=== PATIENT | female | born 1950 | race Caucasian/White ===

== ENCOUNTER 2018-11-17 13:52 | Emergency (ER) | payer MEDICARE, BC ==
--- OUTSIDE RECORDS SUMMARY | 2018-11-17 14:18 | XMS REPORT | Continuity of Care Document ---
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 6.2-8.1 Globulin 3.0 g/dL 2.0-4.8 Alb/Glob(!) 1.3 RATIO 0.6-2.2 Laboratory test finding 03/05/2013 [facility] CA 19-9 30 U/mL <55 29 Basic Metabolic Panel 11/08/2012 [facility] Sodium 138 mmol/L 133-145 Potassium 4.3 mmol/L 3.5-5.0 Chloride 102 mmol/L 101-111 Co2 Carbon Dioxide 28.0 mmol/L 22-32 Anion Gap 8.0 mmol/L 2-11 Glucose 92 mg/dL 70-100 Blood Urea Nitrogen 10 mg/dL 6-24 Creatinine 0.70 mg/dL 0.50-1.40 BUN/Creatinine Ratio 14.3 8-20 Calcium 9.4 mg/dL 8.1-9.9 Egfr Non- 85.4 >60 Egfr 109.8 >60 30 Lipid Profile (Trig/Chol/HDL) 11/08/2012 [facility] Triglycerides 69 mg/dL 40- 200 Cholesterol 200 mg/dL Less than 200 HDL Cholesterol 46 mg/dL 40-60 31 Cholesterol/HDL Ratio 4.4 Average 1-4.44 LDL Cholesterol 140.2 mg/dL High Less Than 100 32 Laboratory test finding 11/08/2012 [facility] Alt 14 U/L 14-54 Ast 18 U/L 12-42 Vitamin D, 25 Hydroxy 11/08/2012 [facility] 25-Hydroxy Vitamin D2 <4.0 ng/mL 25-Hydroxy Vitamin D3 15 ng/mL 25-Hydroxy Vitamin D Total 15 ng/mL Abnormal 33 CBC W/Auto 10/16/2012 [facility] 10.4 3/UL 4.8- 10.8 Differential(!) [address] [facility] [place] [address] Count Ser [phone] Auto CNT RBC Red Blood Count 4.28 X106/UL 4.20-6.20 Hemoglobin Blood 12.5 g/dL 12.0-18.0 Hematocrit 39.0 % 35-52 MCV (Corpuscular Volume) 91.1 FL 79-97 MCH (Corpuscular Hemoglobin) 29.3 pg 27-31 MCHC (Corpuscular Hemog Conc) 32.2 g/dL 32.0-36.0 RDW 14.1 % 10.5-15.0 Platelet Count Blood Auto CNT 393 X103/UL 150-450 MPV 5.9 FL Low 7.4-10.4 Lymph% 12.6 % Low 20.0-45.0 Beaver% 3.3 % 1.0-9.0 Neutrophil % 84.1 % High 38.0-83.0 Absolute Lymphocytes 1.3 X103/UL 1.0-4.8 Absolute Monocytes 0.3 X103/UL 0.0-0.8 Absolute Neutrophils 8.7 X103/UL High 1.5-7.7 Amylase Isoenzymes 10/16/2012 [facility] Pancreatic Amylase 35 U/L 12-52 34 Salivary Amylase 85 U/L 9-86 35 Total Amylase 120 U/L Abnormal 30-110 36 Laboratory test 10/16/2012 [facility] C Reactive Protein 1.3 mg/dL High Less than 0.5 finding Amylase 127 U/L High 20-120 Laboratory test 10/15/2012 [facility] C-Reactive Protein <pending> finding CBC W/Auto 10/15/2012 [facility] Blood Count <pending> Differential(!) Ser Auto CNT RBC Red Blood Count <pending> Hemoglobin Blood <pending> Hematocrit <pending> MCV (Corpuscular Volume) <pending> MCH (Corpuscular Hemoglobin) <pending> MCHC (Corpuscular Hemog Conc) <pending> RDW <pending> Platelet Count Blood Auto CNT <pending> MPV <pending> Lymph% <pending> Beaver% <pending> Neutrophil % <pending> Absolute Lymphocytes <pending> Absolute Monocytes <pending> Absolute Neutrophils <pending> Xray 10/15/2012 [facility] Radiology CT Abd/Pel W <pending> CMP(!) 10/15/2012 [facility] Sodium(!) <pending> Potassium(!) <pending> Chloride Serum/Plasma(!) <pending> Carbon Dioxide Ser/Plasm(!) <pending> BUN - Urea Nitrogen(!) <pending> Calcium Ser/Plasma Mass/Vol(!) <pending> Creatinine Serum Mass/Vol(!) <pending> Glucose Blood(!) <pending> Uric Acid Ser/Plas Mass/Vol(!) <pending> BUN/Creatinine Ratio(!) <pending> Albumin Serum/Plasma(!) <pending> Alkaline Phosphatase(!) <pending> Bilirubin Total Mass/Vol(!) <pending> Ast - Sgot <pending> Alt - SGPT <pending> Protein, Total(!) <pending> Ua Microscopic(!) 10/15/2012 [facility] Ua WBC <pending> Ua RBC <pending> Ua Epithelial Cells <pending> Ua Crystals <pending> Ua Bacteria <pending> Ua Mucous <pending> Ua Amorphous <pending> Ua Yeast <pending> Ua Casts <pending> Laboratory test finding 10/15/2012 [facility] Amylase 383 U/L High 20-120 37 C Reactive Protein 0.6 mg/dL High Less than 0.5 38 Liver Function Panel 10/15/2012 [facility] Direct Bilirubin 0.1 mg/dL 0.1-0.5 Indirect Bilirubin 0.6 mg/dL 0.3-1.0 Comp Metabolic Panel 10/15/2012 [facility] Sodium 138 mmol/L 133-145 Potassium 3.5 mmol/L 3.5-5.0 Chloride 102 mmol/L 101-111 Co2 Carbon Dioxide 28.0 mmol/L 22-32 Anion Gap 8.0 mmol/L 2-11 Glucose 98 mg/dL 70-100 Blood Urea Nitrogen 13 mg/dL 6-24 Creatinine 0.60 mg/dL 0.50-1.40 BUN/Creatinine Ratio 21.7 High 8-20 Calcium 9.2 mg/dL 8.1-9.9 Total Protein 7.2 g/dL 6.2-8.1 Albumin 3.7 g/dL 3.2-5.2 Globulin 3.5 g/dL 2-4 Albumin/Globulin Ratio 1.1 1-3 Total Bilirubin 0.7 mg/dL 0.4-1.5 Alkaline Phosphatase 56 U/L 30-110 Alt 15 U/L 14-54 Ast 21 U/L 12-42 Egfr Non- 102.0 >60 Egfr 131.1 >60 39 Laboratory test 06/14/2012 [facility] CA 19-9 29 U/mL <55 40 finding Laboratory test 06/14/2012 [facility] Hepatitis B Surface Nonreactive Nonreactive finding Antigen Hepatitis B Core IgM Nonreactive Nonreactive Hepatitis B Surface 06/14/2012 [facility] Hepatitis B Surface Nonreactive Nonreactive AB Titer AB Hep B Surf AB Index 0.40 41 Laboratory test 06/14/2012 [facility] Hepatitis C Nonreactive Nonreactive finding Antibody [facility] 11/10/2011 [facility]#Other <pending> Observations [facility] 08/05/2011 [facility]Other <pending> Observations 1 SEE RESULT BELOW Name: SULMA RAMIREZ Stone : [address]: Maximiliano Noble MD Acct: [id number] Unit: [id number] AGE: 67 Location: ENDO Re09/25/17 SEX: F Status: REG REF SPEC: [id number] SONIDO: 09/25/[address]: Maximiliano [facility] MD REQ: [id number] RECD: 09/25/17 STATUS: CELESTE BREWER DR: Joseluis Singh MD _ SOURCE: GAS ANTRUM SPDESC: ORDERED: Clotest Procedure Result Reported Site Clotest Final 09/26/17- 35 ML Clotest Negative * ML - Main Lab . END OF REPORT DEPARTMENT OF PATHOLOGY, [address] [place] [address] Luis Alfredo Call M.D. Director [facility] # [id number] 2 SEE RESULT BELOW Name: SULMA RAMIREZ : [address]: Maximiliano Noble MD Acct: [id number] Unit: [id number] AGE: 67 Location: ENDO Re09/25/17 SEX: F Status: REG REF SPEC: [id number] SONIDO: 09/25/175173 [facility] DR: Maximiliano Noble MD REQ: [id number] RECD: 09/25/174710 STATUS: SAUL BREWER DR: Joseluis Singh MD _ ORDERED: LEVEL 4 FINAL DIAGNOSIS Duodenum, third portion, biopsy: -- Benign small intestinal mucosa with no significant pathologic abnormalities. -- No evidence of villous blunting or increased intraepithelial lymphocytes. CLINICAL HISTORY Mild iron deficiency anemia; stopped iron POST-OPERATIVE DIAGNOSIS Esophagus ? normal; esophagogastric 38 ? small hiatal hernia; stomach ? normal, small hiatal hernia, CLOtest; duodenum ? normal, high second ? small AVM biopsied 20 cm. Conclusions/Plan: Hiatal hernia, gastroesophageal reflux disease, duodenal AVM; iron deficiency anemia; proton pump inhibitor GROSS DESCRIPTION The specimen is received in formalin labeled, Third Portion Duodenum Biopsy, and consists of a 0.7 x 0.4 x 0.1 cm aggregate of talamantes-pink irregular soft tissue fragments which is submitted entirely in one cassette. Signed (signature on file) Zora Howard MD 1122 END OF REPORT DEPARTMENT OF PATHOLOGY, [address] [place] [address] Luis Alfredo Call M.D. Director [facility] # [id number] 3 Because ethnic data is not always readily available, this report includes an eGFR for both -Americans and non- Americans. The National Kidney Disease Education Program (NKDEP) does not endorse the use of the MDRD equation for patients that are not between the ages of 18 and 70, are , have extremes of body size, muscle mass, or nutritional status, or are non- or non-. According to the National Kidney Foundation, irrespective of diagnosis, the stage of the disease is based on the level of kidney function: Stage Description GFR(mL/min/1.73 m(2)) 1 Kidney damage with normal or decreased GFR 90 2 Kidney damage with mild decrease in GFR 60-89 3 Moderate decrease in GFR 30-59 4 Severe decrease in GFR 15-29 5 Kidney failure <15 (or dialysis) 4 Desirable: <150 Borderline High: 150-199 High: 200-499 Very High: >500 5 Desirable: <200 Borderline High: 200-239 High: >239 6 Low: <40 Desirable: 40-60 High: >60 7 Desirable: <100 Near Optimal: 100-129 Borderline High: 130-159 High: 160-189 Very High: >189 8 >100 to <200 pg/mL: likely compensated congestive heart failure (CHF) 200 to 400 pg/mL: likely moderate CHF >400 pg/mL: likely moderate to severe CHF 9 Acute inflammation: >10.00 10 Test Performed by: [facility] [address] [place] [address] 11 Because ethnic data is not always readily available, this report includes an eGFR for both -Americans and non- Americans. The National Kidney Disease Education Program (NKDEP) does not endorse the use of the MDRD equation for patients that are not between the ages of 18 and 70, are , have extremes of body size, muscle mass, or nutritional status, or are non- or non-. According to the National Kidney Foundation, irrespective of diagnosis, the stage of the disease is based on the level of kidney function: Stage Description GFR(mL/min/1.73 m(2)) 1 Kidney damage with normal or decreased GFR 90 2 Kidney damage with mild decrease in GFR 60-89 3 Moderate decrease in GFR 30-59 4 Severe decrease in GFR 15-29 5 Kidney failure <15 (or dialysis) 12 Acute inflammation: >10.00 13 ADDITIONAL INFORMATION The testing method is an immunoenzymatic assay manufactured by [employer] and performed on the Twitter DxI 800. Values obtained with different assay methods or kits may be different and cannot be used interchangeably. Test results cannot be interpreted as absolute evidence for the presence or absence of malignant disease. Test Performed by: [facility] [address] [place] [address] 14 Because ethnic data is not always readily available, this report includes an eGFR for both -Americans and non- Americans. The National Kidney Disease Education Program (NKDEP) does not endorse the use of the MDRD equation for patients that are not between the ages of 18 and 70, are , have extremes of body size, muscle mass, or nutritional status, or are non- or non-. According to the National Kidney Foundation, irrespective of diagnosis, the stage of the disease is based on the level of kidney function: Stage Description GFR(mL/min/1.73 m(2)) 1 Kidney damage with normal or decreased GFR 90 2 Kidney damage with mild decrease in GFR 60-89 3 Moderate decrease in GFR 30-59 4 Severe decrease in GFR 15-29 5 Kidney failure <15 (or dialysis) 15 Estradiols <40 pg/mL are sent to a reference lab for low range testing. Postmenopausal Females < 20 Ovulating females: by day in cycle relative to LH Peak Follicular phase - 12 10-50 - 4 60-200 Mid-cycle - 1 120-375 Luteal phase + 2 50-155 + 6 60-260 + 12 15-115 16 REFERENCE VALUE Premenopausal: 15-350 (E2 levels vary widely through the menstrual cycle.) Postmenopausal: <10 ADDITIONAL INFORMATION This test was developed and its performance characteristics determined by [facility] in a manner consistent with CLIA requirements. This test has not been cleared or approved by the U.S. Food and Drug Administration. Test Performed by: [facility] - [address] [id number] 17 Because ethnic data is not always readily available, this report includes an eGFR for both -Americans and non- Americans. The National Kidney Disease Education Program (NKDEP) does not endorse the use of the MDRD equation for patients that are not between the ages of 18 and 70, are , have extremes of body size, muscle mass, or nutritional status, or are non- or non-. According to the National Kidney Foundation, irrespective of diagnosis, the stage of the disease is based on the level of kidney function: Stage Description GFR(mL/min/1.73 m(2)) 1 Kidney damage with normal or decreased GFR 90 2 Kidney damage with mild decrease in GFR 60-89 3 Moderate decrease in GFR 30-59 4 Severe decrease in GFR 15-29 5 Kidney failure <15 (or dialysis) 18 Because ethnic data is not always readily available, this report includes an eGFR for both -Americans and non- Americans. The National Kidney Disease Education Program (NKDEP) does not endorse the use of the MDRD equation for patients that are not between the ages of 18 and 70, are , have extremes of body size, muscle mass, or nutritional status, or are non- or non-. According to the National Kidney Foundation, irrespective of diagnosis, the stage of the disease is based on the level of kidney function: Stage Description GFR(mL/min/1.73 m(2)) 1 Kidney damage with normal or decreased GFR 90 2 Kidney damage with mild decrease in GFR 60-89 3 Moderate decrease in GFR 30-59 4 Severe decrease in GFR 15-29 5 Kidney failure <15 (or dialysis) 19 ADDITIONAL INFORMATION The testing method is an immunoenzymatic assay manufactured by [employer] and performed on the [employer] DxI 800. Values obtained with different assay methods or kits may be different and cannot be used interchangeably. Test results cannot be interpreted as absolute evidence for the presence or absence of malignant disease. Test Performed by: [place] [address] Director Financial Services: Juarez Reilly II, M.D., Ph.D. 20 Because ethnic data is not always readily available, this report includes an eGFR for both -Americans and non- Americans. The National Kidney Disease Education Program (NKDEP) does not endorse the use of the MDRD equation for patients that are not between the ages of 18 and 70, are , have extremes of body size, muscle mass, or nutritional status, or are non- or non-. According to the National Kidney Foundation, irrespective of diagnosis, the stage of the disease is based on the level of kidney function: Stage Description GFR(mL/min/1.73 m(2)) 1 Kidney damage with normal or decreased GFR 90 2 Kidney damage with mild decrease in GFR 60-89 3 Moderate decrease in GFR 30-59 4 Severe decrease in GFR 15-29 5 Kidney failure <15 (or dialysis) 21 ADDITIONAL INFORMATION The testing method is an immunoenzymatic assay manufactured by [employer] and performed on the [employer] DxI 800. Values obtained with different assay methods or kits may be different and cannot be used interchangeably. Test results cannot be interpreted as absolute evidence for the presence or absence of malignant disease. Test Performed by: [facility] [place] [address] Director Financial Services: Juarez Reilly II, M.D., Ph.D. 22 ADDITIONAL INFORMATION The testing method is an immunoenzymatic assay manufactured by [employer] and performed on the [employer] DxI 800. Values obtained with different assay methods or kits may be different and cannot be used interchangeably. Test results cannot be interpreted as absolute evidence for the presence or absence of malignant disease. Test Performed by: [place] [address] Director Financial Services: Juarez Reilly II, M.D., Ph.D. 23 The testing method is an immunoenzymatic assay manufactured by [employer] and performed on the Twitter DxI 800. Values obtained with different assay methods or kits may be different and cannot be used interchangeably. Test results cannot be interpreted as absolute evidence for the presence or absence of malignant disease. Test Performed by: [place] [address] Director Financial Services: Juan Vargas III, M.D. 24 REFERENCE INTERVAL: Pancreatic Amylase Isoenzyme Access complete set of age- and/or gender-specific reference intervals for this test in the [employer] [facility] Test Directory ([employer]). 25 REFERENCE INTERVAL: Salivary Amylase Isoenzyme Access complete set of age- and/or gender-specific reference intervals for this test in the [employer] [facility] Test Directory ([employer]). 26 REFERENCE INTERVAL: Total Amylase for Isoenzymes Access complete set of age- and/or gender-specific reference intervals for this test in the [employer] Test Directory ([employer]). Test Performed by: [facility] [address] [place] [id number] 27 The testing method is an immunoenzymatic assay manufactured by [employer] and performed on the [email or web address] DxI 800. Values obtained with different assay methods or kits may be different and cannot be used interchangeably. Test results cannot be interpreted as absolute evidence for the presence or absence of malignant disease. Test Performed by: [place] [address] Director Financial Services: Juan Vargas III, M.D. 28 Because ethnic data is not always readily available, this report includes an eGFR for both -Americans and non- Americans. The National Kidney Disease Education Program (NKDEP) does not endorse the use of the MDRD equation for patients that are not between the ages of 18 and 70, are , have extremes of body size, muscle mass, or nutritional status, or are non- or non-. According to the National Kidney Foundation, irrespective of diagnosis, the stage of the disease is based on the level of kidney function: Stage Description GFR(mL/min/1.73 m(2)) 1 Kidney damage with normal or decreased GFR 90 2 Kidney damage with mild decrease in GFR 60-89 3 Moderate decrease in GFR 30-59 4 Severe decrease in GFR 15-29 5 Kidney failure <15 (or dialysis) 29 The testing method is an immunoenzymatic assay manufactured by [employer] and performed on the Twitter DxI 800. Values obtained with different assay methods or kits may be different and cannot be used interchangeably. Test results cannot be interpreted as absolute evidence for the presence or absence of malignant disease. Test Performed by: [place] [address] Director Financial Services: Juan Vargas III, M.D. 30 Because ethnic data is not always readily available, this report includes an eGFR for both -Americans and non- Americans. The National Kidney Disease Education Program (NKDEP) does not endorse the use of the MDRD equation for patients that are not between the ages of 18 and 70, are , have extremes of body size, muscle mass, or nutritional status, or are non- or non-. According to the National Kidney Foundation, irrespective of diagnosis, the stage of the disease is based on the level of kidney function: Stage Description GFR(mL/min/1.73 m(2)) 1 Kidney damage with normal or decreased GFR 90 2 Kidney damage with mild decrease in GFR 60-89 3 Moderate decrease in GFR 30-59 4 Severe decrease in GFR 15-29 5 Kidney failure <15 (or dialysis) 31 HDL Interpretation: Undesirable: High Risk: Less than 40 mg/dL Desirable: Low Risk: Greater than 60 mg/dL 32 LDL Interpretation: Low Risk Optimal Level: LDL Less than 100 mg/dL Near or Above Optimal: LDL 100-129 mg/dL Borderline High Risk: LDL 130-159 mg/dL High Risk: LDL 160-189 mg/dL Very High Risk: LDL Greater than 189 mg/dL 33 Interpretation: 10-24 (mild to moderate deficiency) -- REFERENCE VALUE -- 25-HYDROXY D TOTAL (D2+D3) Optimum levels in the normal population are 25-80 Test Performed by: [facility] [address] [place] [address] Director Financial Services: Juan Vargas III, M.D. 34 REFERENCE INTERVAL: Pancreatic Amylase Isoenzyme Access complete set of age- and/or gender-specific reference intervals for this test in the [employer] [facility] Test Directory ([employer]). 35 REFERENCE INTERVAL: Salivary Amylase Isoenzyme Access complete set of age- and/or gender-specific reference intervals for this test in the [employer] [facility] Test Directory ([employer]). 36 REFERENCE INTERVAL: Total Amylase for Isoenzymes Access complete set of age- and/or gender-specific reference intervals for this test in the [employer] Test Directory ([employer]). Test Performed by: [facility] [address] [place] [id number] AOT-LIVER,TEREZA 38 AOT-LIVER,TEREZA 39 Because ethnic data is not always readily available, this report includes an eGFR for both -Americans and non- Americans. The National Kidney Disease Education Program (NKDEP) does not endorse the use of the MDRD equation for patients that are not between the ages of 18 and 70, are , have extremes of body size, muscle mass, or nutritional status, or are non- or non-. According to the National Kidney Foundation, irrespective of diagnosis, the stage of the disease is based on the level of kidney function: Stage Description GFR(mL/min/1.73 m(2)) 1 Kidney damage with normal or decreased GFR 90 2 Kidney damage with mild decrease in GFR 60-89 3 Moderate decrease in GFR 30-59 4 Severe decrease in GFR 15-29 5 Kidney failure <15 (or dialysis) 40 The testing method is an immunoenzymatic assay manufactured by [employer] and performed on the [employer] DxI 800. Values obtained with different assay methods or kits may be different and cannot be used interchangeably. Test results cannot be interpreted as absolute evidence for the presence or absence of malignant disease. Test Performed by: [facility] [address] [place] [address] Director Financial Services: Juan Vargas III, M.D. 41 The World Health Organization (WHO) Hepatitis B Immunoglobulin 1st International Reference Preparation (1976): The accepted criteria for immunity to HBV is anti-HBs activity greater than or equal to 10 mIU/mL. An Index Value of 1.00 is equivalent to 10 mIU/mL. Samples with an Index Value of 1.00 or greater are considered reactive (protective) in accordance with the CDC guidelines. Procedures Date Code Description Status 09/25/2017 29628 Moderate Sedation Services; Same Phys Each Additional 15 Completed Mins 09/25/2017 78245 Endoscopy Upper GI W/ Ablation Of Tumors/Polyps/Lesions Completed 09/25/2017 25128 EGD+Biopsy Single Or Multiple Completed 06/22/2017 77510 Moderate Sedation Services; Same Phys Each Additional 15 Completed Mins 06/22/2017 66163 Moderate Sedation Services; Same Phys Intl 15 Mins; PT >=5 Completed Years 06/22/2017 78154 Colonoscopy Completed 05/31/2012 92771 Colonoscopy Completed 07/12/2006 24370 Colonscopy+Biopsy Completed Encounters Type Date Location Provider Dx Diagnosis Office Visit 11/12/2017 [facility] Maximiliano Gutierres D50.9 Iron deficiency 3:15p [facility] anemia, unspecified 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 K86.2 Cyst of pancreas K76.89 Other specified diseases of liver Office Visit 10/18/2017 [facility] Maximiliano Gutierres D50.9 Iron deficiency 11:30a [facility] MD anemia, unspecified 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 K44.9 Diaphragmatic hernia without obstruction or gangrene Office Visit 08/16/2017 [facility] Maximiliano Gutierres E61.1 Iron deficiency 11:30a [facility] MD I99.8 Other disorder of circulatory system 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 Cyst of pancreas K57.30 Dvrtclos of lg int w/o perforation or abscess w/o bleeding Office Visit 07/10/2017 [facility] Maximiliano Gutierres D50.9 Iron deficiency 2:15p [facility] MD anemia, unspecified K59.00 Constipation, unspecified D72.810 Lymphocytopenia Office Visit 11/15/2016 Gastroenterology Maximiliano Gutierres K86.2 Cyst of 3:15p [facility] Mary Kate Noble MD pancreas R63.5 Abnormal weight gain K76.89 Other specified diseases of liver F41.1 Generalized anxiety disorder K58.1 Irritable bowel syndrome with constipation Office Visit 10/28/2015 Gastroenterology Maximiliano Gutierres K86.2 Cyst of 10:00a [facility] Noble MD pancreas K59.00 Constipation, unspecified R63.4 Abnormal weight loss Office Visit 05/17/2015 Gastroenterology Maximiliano Gutierres K86.2 Cyst of 3:45p [facility] MD pancreas Office Visit 09/03/2013 Gastroenterology Maximiliano Gutierres 577.2 Cyst & 2:00p [facility] MD Pseudocyst Pancreas 573.8 Liver Disorders Other Spec 562.10 Diverticulosis Colon W/O Hemorrhage 783.21 Loss Of Weight Office Visit 05/29/2013 Gastroenterology Maximiliano Perla3.8 Liver Disorders 11:30a [facility] MD Other Spec 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 780.52 Insomnia Unspecified 564.00 Constipation Unspecified Office Visit 05/01/2013 Gastroenterology Maximiliano Gutierres 789.06 Pain Abdominal 12:30p [facility] MD Epigastric 305.02 Alcohol Abuse Episodic 562.10 Diverticulosis Colon W/O Hemorrhage 564.1 Irritable Bowel Syndrome 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 300.02 Anxiety Disorder Generalized Office 04/11/2013 Gastroenterology Nancy 562.11 Diverticulitis Visit 11:15a [facility] Ferraro Colon W/O ALUMNI COORDINATOR-C Hemorrhage Office 03/05/2013 Gastroenterology Maximiliano Gutierres 577.2 Cyst & Pseudocyst Visit 3:45p [facility] MD Pancreas 573.8 Liver Disorders Other Spec 564.00 Constipation Unspecified V12.72 History Personal Colonic Polyps 789.04 Pain Abdominal Left Lower Quadrant Office Visit 11/11/2012 Gastroenterology Maximiliano Gutierres 564.00 Constipation 1:30p [facility] MD Unspecified 573.8 Liver Disorders Other Spec 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 V12.72 History Personal Colonic Polyps Office Visit 10/16/2012 Gastroenterology Maximiliano Gutierres 789.00 Pain Abdominal 1:00p [facility] MD Unspec Site Office Visit 06/14/2012 Gastroenterology Maximiliano Gutierres 573.8 Liver 9:45a [facility] MD Disorders Other Spec 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
--- OUTSIDE RECORDS SUMMARY | 2018-11-17 14:18 | XMS REPORT | Continuity of Care Document ---
:1950 External Reference #:[id number] Author Name John Rankin MD Address [address] [place] [address] Care Team Providers Name Role Phone Joseluis Singh M.D. 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 Primary Care Physician Unavailable Payers Date Identification Numbers Payment Provider Subscriber Effective: Policy Number: [id number] [place] [employer]VS Consuelo Lombardo 2018 PayID: [id number] [address] [place] [address] Policy Number: [id number] [facility] Consuelo Lombardo PayID: [id number] [address] [place] [address] Advance Directives Description No Information Available Problems Active Problems Provider Date Sialolithiasis John Rankin MD Onset: 06/29/2011 Acute pharyngitis Jeffrey Alegre M.D. 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 Cigarette Use Negative For Current Cigarette Smoker Tobacco Use Start: Unknown End: Unknown current.no Tobacco Use Start: Unknown End: Unknown current.no Smokeless Tobacco current.no ETOH Use Current Alcohol Use Occasionally Tobacco Use Start: Unknown Patient has never smoked Smoking Status Reviewed: 10/22/18 Patient has never smoked Allergies, Adverse Reactions, Alerts Active Allergies Reaction Severity Comments Date None 09/04/2007 Medications Active Medications SIG Qnty Indications Ordering Provider Date Estrogen Unknown Vitamin D Unknown Lorazepam Unknown Propananol -Long Unknown Acting Premarin Lisa LIVE, Juarez 0.3mg Tablets Valacyclovir HCL Take Two Tablets Unknown 1gm Spaced 12 Hours Tablets Apart X 1 Day Advil as needed Unknown 200mg Capsules Aspirin Adult Unknown 325mg Tablets History Medications Clindamycin HCL 1 by mouth 3 21caps John Rankin, 10/16/2014 - 300mg times a day for 7 OK 11/29/2014 Capsules days Amoxicillin 1 by mouth 3 21tabs John Rankin, 10/16/2014 - 500mg times a day for 7 OK 11/29/2014 Tablets days Augmentin 1 by mouth twice 20tabs John Rankin, 10/15/2014 - 875-125mg a day 10/16/2014 Tablets Augmentin 1 by mouth twice 20tabs John Rankin, 06/28/2011 - 875-125mg a day 03/06/2013 Tablets Calcium Unknown - 10/16/2014 Vitamin K Unknown - 10/16/2014 Halcion take once daily Jeffrey Reyes - 0.25mg Tablets at bedtime M.D. 10/21/2018 Immunizations CPT Code Status Date Vaccine Lot # [id number] Refused 11/30/2014 Prevnar 13 For Intramuscular Use 12157 Refused 11/30/2014 Influenza Virus Vaccine, 3 Years Of Age And Above, Intramuscular Vital Signs Date Vital Result Comment 10/22/2018 8:47am Weight 135.00 lb Weight 61.236 kg Height 64.5 inches 5'4.50" Height in cm's 163.8 cm BMI (Body Mass Index) 22.8 kg/m2 12/22/2015 3:07pm BP Systolic 123 mmHg BP Diastolic 81 mmHg Heart Rate 84 /min Respiratory Rate 16 /min Weight 150.00 lb Weight 68.040 kg Height 64.5 inches 5'4.50" Height in cm's 163.8 cm BMI (Body Mass Index) 25.3 kg/m2 11/30/2014 3:02pm BP Systolic 136 mmHg BP Diastolic 77 mmHg Heart Rate 79 /min Respiratory Rate 17 /min Body Temperature 99.4 F Weight 150.00 lb Weight 68.040 kg Height 64.5 inches 5'4.50" Height in cm's 163.8 cm BMI (Body Mass Index) 25.3 kg/m2 10/16/2014 10:20am BP Systolic 120 mmHg BP Diastolic 73 mmHg Heart Rate 68 /min Respiratory Rate 16 /min Weight 150.00 lb Weight 68.040 kg Height 64.5 inches 5'4.50" Height in cm's 163.8 cm BMI (Body Mass Index) 25.3 kg/m2 03/06/2013 11:46am BP Systolic 120 mmHg BP Diastolic 78 mmHg Heart Rate 64 /min Respiratory Rate 16 /min Weight 150.00 lb Weight 68.040 kg Height 64.5 inches 5'4.50" Height in cm's 163.8 cm BMI (Body Mass Index) 25.3 kg/m2 06/28/2011 3:05pm BP Systolic 119 mmHg BP Diastolic 86 mmHg Heart Rate 87 /min Respiratory Rate 16 /min Weight 150.00 lb Weight 68.040 kg Height 64.5 inches 5'4.50" Height in cm's 163.8 cm BMI (Body Mass Index) 25.3 kg/m2 09/09/2008 10:20am Heart Rate 72 /min Respiratory Rate 16 /min Weight 152.00 lb Weight 68.947 kg 08/20/2008 2:01pm Heart Rate 64 /min Respiratory Rate 16 /min Weight 150.00 lb Weight 68.040 kg 09/25/2007 2:29pm BP Systolic 132 mmHg BP Diastolic 75 mmHg Heart Rate 93 /min Respiratory Rate 16 /min 09/05/2007 2:11pm BP Systolic 121 mmHg BP Diastolic 83 mmHg Heart Rate 100 /min Respiratory Rate 15 /min Results Test Date Facility Test Result H/L Range Note Laboratory test [facility] Rheumatoid < 20.0 Less Than finding 9 c/o Department of Laboratories Factor IU/mL [address] [place] [address] [phone] Erythrocyte Sed Rate 10 MM/HR 0-30 Anya (Antinuclear 09/19/2008 [facility] Antinuclear AB NEGATIVE Negative Antibodies) c/o Department [place] [address] [phone] Reviewed By (SEE NOTE) 1 Ssa/SSB 09/19/2008 [facility] Ssa NEGATIVE Negative c/o Department [place] [address] [phone] SSB NEGATIVE Negative Comp Metabolic Panel 09/19/2008 [facility] Sodium 137 mmol/L 135-145 c/o [place] [address] [phone] Potassium 4.1 mmol/L 3.5-5.0 Chloride 105 mmol/L 101-111 Co2 (Carbon Dioxide) 28.0 mmol/L 22-32 Anion Gap 4.0 mmol/L 2-11 2 Glucose 87 mg/dL 70-100 3 BUN 16 mg/dL 6-24 Creatinine 0.80 mg/dL 0.50-1.40 One Over Creatinine 1.20 BUN/Creatinine Ratio 20.0 8-20 Calcium 9.3 mg/dL 8.1-9.9 4 Total Protein 6.4 GM/DL 6.2-8.1 Albumin 3.7 GM/DL 3.6-5.4 Globulin 2.7 GM/DL 2-4 Albumin/Globulin Ratio 1.4 1-3 Bilirubin Total 1.3 mg/dL 0.4-1.5 Alkaline Phosphatase 45 U/L 30-110 Alt (SGPT) 17 U/L 14-54 Ast (Sgot) 18 U/L 12-42 Lipid Profile 09/19/2008 [facility] Triglyceride 63 mg /dL 40-200 (Trig/Chol/HDL) c/o Department [place] [address] [phone] Cholesterol 192 mg/dL Less Than 200 5 High Density Lipoprotein 46 mg/dL 40-60 6 Cholesterol/HDL Ratio 4.17 AVERAGE 1-4.44 Low Density Lipoprotein 133 mg/dL High Less Than 100 7 Laboratory test 09/19/2008 [facility] CPK (Creatine 34 U/L 0-170 finding c/o Department of Laboratories [place]) [place] [address] [phone] BNP Evaluatr 105.0 pg/mL High 0-100 CBC With Manual 09/19/2008 [facility] White Blood 5.1 CUMM 4.8-10.8 Diff c/o Department [place] [address] [phone] Red Cell Count 4.40 CUMM 4.2-5.4 Hemoglobin 13.5 g/dL 12.0-16.0 Hematocrit 39 % 35-47 Mean Corpuscular Volume 89 um3 79-97 Mean Corpuscular Hemoglob 31 pg 27-31 Mean Corpuscular HGB Cone 34 g/dL 32-36 Redcell Distribution WDTH 14 % 10.5-15 Platelet Count 282 CUMM 150-450 Mean Platelet Volume 7.0 um3 Low 7.4-10.4 Polysegmented Neutrophil 63 % 38-83 Lymphocyte 30 % 25-47 Monocyte 3 % 0-13 Eosenophil 3 % 0-6 Basophil 1 % 0-2 Absolute Neutrophil Count 3.2 Anisocytosis SLIGHT 1 REVIEWED BY YANI HORTON MD 2 Anion gap measurement may be of limited value in the presence of any alkalosis, especially in a combined acid base disorder. . 3 Note change in reference range as of 01/30/08. The change was based on recommendations from the [place] [employer]. 4 Please note change in reference range effective 07 . 5 CHOLESTEROL INTERPRETATION: Desirable: Less than 200 MG/DL Borderline-High Risk: 200-239 MG/DL High-Risk: 240 MG/DL and over 6 HDL INTERPRETATION: Undesirable: High Risk: Less than 40 MG/DL Desirable: Low Risk: Greater than 60 MG/DL 7 LDL INTERPRETATION: Low Risk Optimal Level: LDL Less than 100 MG/DL Near or Above Optimal: LDL 100-129 MG/DL Borderline High Risk: LDL 130-159 MG/DL High Risk: LDL 160-189 MG/DL Very High Risk: LDL Greater than 189 MG/DL Procedures Date Code Description Status 12/22/2015 20846 Fiberoptic Laryngoscopy Completed 03/06/2013 23938 Fiberoptic Laryngoscopy Completed 04/07/2010 37033 Fiberoptic Laryngoscopy Completed 09/09/2008 46186 Fiberoptic Laryngoscopy Completed 09/05/2007 86856 Comprehensive Audiogram Completed 09/05/2007 95921 Comprehensive Audiogram Completed Encounters Type Date Location Provider Dx Diagnosis Office Visit 10/22/2018 [facility],After John Casanova0.0 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 06/11/07 MD Massiel lip Office Visit 11/30/2014 Reggie,After Jeffrey Meier Pharyngitis, Acute 3:15p 06/11/07 Wolfgang Alegre Office Visit 10/16/2014 [facility],After John Echols 527.2 Sialoadenitis/ Parotit 10:15a 06/11/07 MD Massiel is Office Visit 06/28/2011 [facility],After John Echols 527.5 Sialolithiasis 3:00p 06/11/07 MD Massiel Office Visit 04/07/2010 [facility],After John Echols 784.49 Hoarseness /Other 4:15p 06/11/07 MD Massiel 784.1 Pain Of Throat Office Visit 09/09/2008 10:15a Chapman,After 06/11/07 John Echols 527.5 Sialolithiasis MD Massiel 784.49 Hoarseness /Other Office Visit 08/20/2008 [facility],After John Echols 527.5 Sialolithiasis 2:00p 06/11/07 MD Massiel Office Visit 09/25/2007 [facility],After John Echols 386.11 Vertigo, Benign 2:15p 06/11/07 MD Massiel Paroxysmal Positional 289.1-1 Adenitis, Cervical/Chronic Office Visit 09/05/2007 [facility],After John Echols 386.10 Vertigo / 2:00p 06/11/07 MD Massiel Unspecified 386.11 Vertigo, Benign Paroxysmal Positional Plan of Treatment No Information Available
--- NOTE | 2018-11-17 16:20 | ED ---
GI/ HPI - HPI Summary HPI Summary: A 68 y/o F referred by Dr. Martin for obstructed bowel presents to ED c/o constipation for past two weeks. She felt herself becoming constipated and her abd distending, so she went to Dr. Stevenson's office around , and the WATER QUALITY TECHNICIAN did a pelvic exam and felt a lot of stool present on her L abd. She also saw NASIR Lynch, at the end of October, who did a rectal exam and recommended she keep up the milk of magnesia, Mirolax and diet changes. She has been doing these things but to no relief. Yesterday and today, she feels that she needs to go, but is unable to pass the stool. She is passing brown fluid but very little stool. PMHx: colostomy, bowel obstructions that resulted in hospital admission. Patient is afebrile in ED. - History of Current Complaint Chief Complaint: EDConstipation Stated Complaint: BOWEL OBSTRUCTION PER PT Hx Obtained From: Patient Onset/Duration: Started Weeks Ago, Atraumatic, Still Present Timing: Constant Severity: Mild Current Severity: Moderate Pain Intensity: 3 - out of 10 Pain Characteristics: Aching Associated Signs and Symptoms: Positive: Other: - pos: abd distension - Allergy/Home Medications Allergies/Adverse Reactions: Allergies Allergy/AdvReac Type Severity Reaction Status Date / Time carvedilol AdvReac Mild Fatigue Verified 11/17/18 14:07 risedronate sodium AdvReac Mild Joint Pain Verified 11/17/18 14:07 PMH/Surg Hx/FS Hx/Imm Hx Previously Healthy: No Endocrine/Hematology History: Denies: Hx Diabetes, Hx Systemic Lupus Erythematosus, Hx Thyroid Disease - THYROID NODULES, Hx Anemia Comment Only: Hx Anticoagulant Therapy - taking ASA x 3 daily x several days Cardiovascular History: Reports: Hx Cardiomegaly - 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 Denies: Hx Angina, Hx Coronary Artery Disease, Hx Hypercholesterolemia, Hx Hypertension, Hx Myocardial Infarction, Hx Pacemaker/ICD, Hx Valvular Heart Disease Comment Only: Hx Congestive Heart Failure - SLIGHTLY LOWER EF, Other Cardiovascular Problems/Disorders - ENLARGED HEART WITH INCREASED PUMPING VOLUME OUTPUT PER PT Respiratory History: Denies: Hx Asthma, Hx Chronic Obstructive Pulmonary Disease (COPD) GI History: Reports: Hx Diverticulosis, Other GI Disorders - colostomy with reversal Denies: Hx Jaundice History: Denies: Hx Dialysis, Hx Renal Disease Musculoskeletal History: Reports: Hx Osteoporosis Denies: Hx Rheumatoid Arthritis Sensory History: Reports: Hx Cataracts - BILATERAL, Hx Contacts or Glasses - GLASSES-DISTANCE Denies: Hx Hearing Aid Opthamlomology History: Reports: Hx Cataracts - BILATERAL, Hx Contacts or Glasses - GLASSES-DISTANCE Neurological History: Denies: Hx Dementia, Hx Headaches, Hx Seizures Psychiatric History: Comment Only: Hx Anxiety - SLIGHT AT TIMES - Cancer History Cancer Type, 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 bladder polyp removal- OFFICE-2011. hysterectomy [facility] [place]-1986. av malformation embolized-, [facility] RECENT[facility] 2011-[facility]. -left breast biopsy- benign. rt ankle surgery done november 20 2013. pins removed in 2013 and 2018. RIGHT ANKLE SURGERY- 11/2014 (4 total). hernia repair, appendectomy. CATARACT EXTRACTION BILATERAL- 3 YEARS AGO Hx Anesthesia Reactions: Yes - AVM EMBOLIZED-VOMITING, "OUT OF IT" Infectious Disease History: No Infectious Disease History: Denies: Hx Clostridium Difficile, Hx Hepatitis, Hx Human Immunodeficiency Virus (HIV), Hx of Known/Suspected MRSA, Hx Shingles, Hx Tuberculosis, History Other Infectious Disease, Traveled Outside the in Last 30 Days - Family History Family History: neg: breast CA - Social History Occupation: Retired Lives: With Family Alcohol Use: Occasionally Substance Use Type: Reports: None Smoking Status (MU): Never Smoked Tobacco Review of Systems Negative: Fever Gastrointestinal: Other - pos: abd distension Positive: Other - pos: constipation All Other Systems Reviewed And Are Negative: Yes Physical Exam - Summary Physical Exam Summary: Appearance: The patient is well-nourished in no acute distress and in no acute pain. Skin: The skin is warm and dry and skin color reflects adequate perfusion. HEENT: The head is normocephalic and atraumatic. The pupils are equal and reactive. The conjunctivae are clear and without drainage. Nares are patent and without drainage. Mouth reveals moist mucous membranes and the throat is without erythema and exudate. The external ears are intact. The ear canals are patent and without drainage. The tympanic membranes are intact. Neck: the neck is supple with full range of motion and non-tender. There are no carotid bruits. There is no neck vein distension. Respiratory: Chest is non-tender. Lungs are clear to auscultation and breath sounds are symmetrical and equal. Cardiovascular: Heart is regular rate and rhythm. There is no murmur or rub auscultated. There is no peripheral edema and pulses are symmetrical and equal. Abdomen: The abdomen is soft and non-tender. There are normal bowel sounds heard in all four quadrants and there is no organomegaly palpated. Musculoskeletal: There is no back tenderness noted. Extremities are non-tender with full range of motion. There is good capillary refill. There is no peripheral edema or calf tenderness elicited. Neurological: Patient is alert and oriented to person, place and time. The patient has symmetrical motor strength in all four extremities. Cranial nerves are grossly intact. Deep tendon reflexes are symmetrical and equal in all four extremities. Psychiatric: The patient has an appropriate affect and does not exhibit any anxiety or depression. RECTAL: Chaperoned by ERVIN Liu. No stool felt on exam, no stool on glove. Triage Information Reviewed: Yes Vital Signs On Initial Exam: Initial Vitals Temp Pulse Resp BP Pulse Ox 98.4 F 71 14 143/92 98 11/17/18 14:02 11/17/18 14:02 11/17/18 14:02 11/17/18 14:02 11/17/18 14:02 Vital Signs Reviewed: Yes Diagnostics - Vital Signs Vital Signs Temp Pulse Resp BP Pulse Ox 11/17/18 16:00 58 99 11/17/18 15:51 56 99 11/17/18 15:50 64 136/77 99 11/17/18 14:02 98.4 F 71 14 143/92 98 - Laboratory Lab Statement: Any lab studies that have been ordered have been reviewed, and results considered in the medical decision making process. - CT ABD/PEL CT CT Interpretation Completed By: Radiologist Summary of CT Findings: IMPRESSION: 1. There are air-fluid levels in the distal colon as far as the rectum but there is no pathologic dilatation of the small or large bowel. There is no free intraperitoneal gas to indicate bowel perforation. 2. The urinary bladder volume is estimated to be 1.2 L. Please correlate to signs or symptoms of urinary bladder outlet obstruction and/or neurogenic bladder. 3. There are extensive chronic, degenerative and iatrogenic findings described in the body of the report. ED provider has reviewed this report. Re-Evaluation - Re-Evaluation 1 Re-Evaluation Time: 17:24 Change: Unchanged Comment: ED provider at bedside for rectal exam. 2 Re-Evaluation Time: 17:58 Change: Unchanged Comment: Discussing CT results with patient. GIGU Course/Dx - Course Course Of Treatment: On rectal exam I could feel a mass but no stool. She swore that she emptied her bladder completely when she urinated however the CT scan shows a markedly enlarged bladder. I could not see the urine using the bladder scan. At for a catheter was placed and she did indeed have over a liter of urine in her bladder. I think this is likely the source of her discomfort as the scan is not being read as fecal impaction. Admittedly her previous surgeries to obscure some of the feeling in her pelvis. I recommended follow-up with Dr. Chavarria and Dr. stevenson this week. I wanted to discharge her with the Donnel[facility] in place but she refused. - Diagnoses Provider Diagnoses: Acute urinary retention Discharge - Sign-Out/Discharge Documenting (check all that apply): Patient Departure - D/C Patient Received Moderate/Deep Sedation with Procedure: No - Discharge Plan Condition: Stable Disposition: HOME Referrals: Joseluis Stevenson MD [Primary Care Provider] - 3 Days Additional Instructions: Please return to the ED if you experience new or worsening symptoms. Follow up with your primary care provider in 2-3 days. - Billing Disposition and Condition Condition: STABLE Disposition: Home - Attestation Statements Document Initiated by Loreeibe: Yes Documenting Scribe: Vincent Aguayo Provider For Whom Jason is Documenting (Include Credential): Dr. Balwinder Hutchins MD Scribe Attestation: I, Vincent Aguayo, scribed for Dr. Balwinder Hutchins MD on 11/17/18 at 1906. Scribe Documentation Reviewed: Yes Provider Attestation: The documentation as recorded by the Vincent garcía accurately reflects the service I personally performed and the decisions made by me, Dr. Balwinder Hutchins MD Status of Scribe Document: Viewed
[2018-11-17 19:14] LABS: Urine Appearance Clear; Urine Bilirubin Negative (Negative); Urine Blood Negative (Negative); Urine Color Straw; Urine Glucose Negative (Negative); Urine Ketones Negative (Negative); Urine Nitrite Negative (Negative); Urine Protein Negative (Negative); Urine Specific Gravity 1.003 (1.010-1.030); Urine Urobilinogen Negative (Negative)
[2018-11-17 19:56] VITALS: BP 131/77
== END 2018-11-17 19:56 | disposition home or self-care (01) ==
LOC: ED 13:52
DX: R33.9 Retention of urine, unspecified (principal)
CPT/HCPCS: 74176; 81003; 99283

== ENCOUNTER 2019-01-06 17:52 | Emergency (ER) | payer MEDICARE, BC ==
--- OUTSIDE RECORDS SUMMARY | 2019-01-06 17:58 | XMS REPORT | Continuity of Care Document ---
:1950 External Reference #:[id number] Author Name Teresa Mariano Care Team Providers Name Role Phone Joseluis Singh MD Primary Care Physician Unavailable Payers Date Identification Numbers Payment Provider Subscriber Policy Number: [id number] Medicare Sulma Ramirez PayID: [id number] [address] [place] [address] Policy Number: [id number] [facility] Sulma Ramirez PayID: [id number] [address] [place] [address] Onset: 2013 Policy Number: [facility] Sulma Ramirez [id number] Group Number: [id number] [address] [address] PayID: [place] [address] Problems Active Problems Provider Date Mitral valve disorder [facility] Schedule Onset: 05/23/2011 Tricuspid valve disorder, non-rheumatic [facility] Schedule Onset: 2010 Heart murmur John Avery M.D. Onset: 11/09/2011 Nonunion of fracture Ciaran Reynoso MD Onset: 06/19/2017 Metatarsalgia Ciaran Reynoso MD Onset: 06/19/2017 Unspecified osteoarthritis, unspecified Ciaran Reynoso MD Onset: 06/19/2017 site Iron deficiency anemia Maximiliano Noble MD Onset: 07/22/2017 Note: pt not actually anemic spring 2017 Chronic anxiety Maximiliano Noble MD Onset: 11/07/1997 Note: very concerned about all issues with mild abnormalities; Neurogenic bladder Maximiliano Nbole MD Onset: 11/18/2018 Note: no cause found; referred to urology by family or Erika; [place] once - doing straight caths for a few months; can wait many many hours between voids; recalls a voiding test Arteriovenous fistula of splanchnic Peter Nenita Noble MD Onset: 11/18/1994 circulation Note: treated at [facility] by [facility]; Resolved Problems 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 Allergies, Adverse Reactions, Alerts Active Allergies Reaction Severity Comments Date Carvedilol fatigue dyspnea Intolerance 02/21/2013 Actonel joint pain 09/05/2017 Inactive Allergies NKDA 2004 Medications Active Medications SIG Qnty Indications Ordering Date Provider Oxycodone HCL Unknown 5mg Tablets Miralax 17 grams by mouth Unknown Powder every day as needed Milk Of Magnesia 30 milliliters by Unknown mouth every day as 400mg/5ML Suspension needed Magnesium by mouth every Unknown Tablet night unsure of strength Vitamin K2 1 by mouth every Unknown 100mcg day Capsules Propranolol HCL 1/2 tablet by mouth Unknown as needed Tablet Ibuprofen by mouth as needed Unknown Tablets Premarin 1 by mouth 1-2 30tabs Unknown 0.3mg times a day Tablets Aspirin by mouth as needed Unknown 325mg Tablets Vitamin D3 1 by mouth every 30caps Unknown 400mg day Capsules Lorazepam 1 tablet po at Unknown 2mg Tablets bedtime History Medications Oxycodone HCL 1-2 tabs by mouth 30caps Yo Vera, 06/16/2014 - 5mg every 4-6 hours as Wolfgang 06/20/2015 Capsules needed pain Premarin 1 by mouth days 1-25 John Gilbert 05/26/2014 - 0.3mg Tablets Wolfgang Avery 05/25/2014 Vasotec 1 po bid 60tabs John Gilbert 02/21/2013 - 2.5mg Tablets Wolfgang Avery 05/12/2013 Coenzyme Q-10 po qd ocassionally Other Ordering 01/15/2013 - 200mg Provider 05/12/2013 Capsules Vitamin K2 1 po qd 1tabs Other Ordering 01/15/2013 - 500MCQ Tablets Provider 02/21/2013 Propranolol HCL ER take 1 by mouth 220caps John Gilbert 01/15/2013 - 60mg every ten hours Wolfgang Avery 06/20/2015 Caps ER 24HR Carvedilol 1 po bid 60tabs John Gilbert 01/01/2013 - 3.125mg Wolfgang Avery 01/15/2013 Tablets Propranolol HCL 1/2 po prn 60tabs John Gilbert 04/11/2012 - 20mg Wolfgang Avery 09/22/2014 Tablets Amoxicillin 500 mg 4tabs prior 4caps John Gilbert 10/15/2007 - 500mg to dental work Wolfgang Avery 12/01/2010 Capsules Vit D and calcium 1 PO qd John Gilbert 08/29/2007 - Wolfgang Avery 11/12/2008 Capsules Aspirin 1 PO prn John Gilbert 09/05/2006 - 325mg Tablets Wolfgang Avery 11/12/2008 Aspirin Enteric Coated 1 po qd prn John Gilbert 2004 - Wolfgang Avery 09/05/2006 325mg Tablets Calcium/Vit D 1 PO bid 30tabs John Gilbert 2004 - Tablets Wolfgang Avery 08/29/2007 Actonel One Q-WK In Am With 4tabs John Gilbert 2004 - 35mg Tablets Large Glass Of Wolfgang Avery 09/05/2006 [place] Empty Stomach, NPO For 30 Minutes Lorazepam 1 po hs prn 60tabs John Gilbert 2004 - 0.5mg Tablets Wolfgang Avery 12/01/2010 Propranolol 10mg bid prn 100tabs John Gilbert 2004 - 20mg Tablets pressure in head Wolfgang Avery 04/11/2012 Premarin 1 qd 30tabs John Gilbert 2004 - 0.3mg Tablets Wolfgang Avery 11/12/2008 Vitamin D 1 po qd Unknown - 1000Unit 11/09/2011 Tablets Premarin 1/2 po qd 90tabs Unknown - 0.3mg Tablets 05/25/2014 Halcion 1/2-1 tablet po qhs 60tabs Unknown - 0.25mg Tablets prn 11/07/2016 Multi Mineral 1 po qd Unknown - Tablets 11/09/2011 Percocet 1-2 by mouth every 4 Unknown - 5-325mg Tablets to 6 hours as needed 06/20/2015 pain Ibuprofen 2-3 tabs by mouth as Unknown - 200mg Tablets needed 05/25/2014 Benadryl Unknown - 06/20/2015 Spironolactone 1 daily Unknown - 25mg 09/04/2017 Tablets Oxycodone HCL Unknown - 04/29/2018 Medications Administered in Office Medication SIG Qnty Indications Ordering Provider Date Inj, Regadenoson, 0.1 MG Prince Carrion M.D., 07/30/2014 Injection STEFAN GARCIA Technetium TC 99M Prince Carrion M.D., 07/30/2014 Tetrofosmin, Per Unit Dose STEFAN GARCIA Up To 40 Millicuries Injection Vital Signs Date Vital Result Comment 12/23/2018 3:55pm Height 63.5 inches 5'3.50" Weight 137.00 lb Heart Rate 71 /min BP Systolic 126 mmHg BP Diastolic 86 mmHg O2 % BldC Oximetry 97 % BMI (Body Mass Index) 23.9 kg/m2 11/18/2018 4:10pm Height 63.5 inches 5'3.50" Weight 133.00 lb Heart Rate 82 /min BP Systolic 116 mmHg BP Diastolic 72 mmHg O2 % BldC Oximetry 97 % BMI (Body Mass Index) 23.2 kg/m2 11/07/2018 3:54pm Height 63.5 inches 5'3.50" Weight 136.00 lb Heart Rate 70 /min BP Systolic 119 mmHg BP Diastolic 81 mmHg O2 % BldC Oximetry 96 % BMI (Body Mass Index) 23.7 kg/m2 07/24/2018 10:02am Height 63.5 inches 5'3.50" Weight 136.12 lb Heart Rate 60 /min BP Systolic Sitting 118 mmHg Lue regular cuff BP Diastolic Sitting 82 mmHg Lue regular cuff Respiratory Rate 12 /min O2 % BldC Oximetry 98 % BMI (Body Mass Index) 23.7 kg/m2 06/20/2018 2:31pm Height 63.5 inches 5'3.50" Weight 132.00 lb Heart Rate 70 /min BP Systolic Sitting 116 mmHg BP Diastolic Sitting 76 mmHg Respiratory Rate 12 /min O2 % BldC Oximetry 97 % BMI (Body Mass Index) 23.0 kg/m2 Neck Circumference in inches 12 04/30/2018 3:24pm Height 63.5 inches 5'3.50" Weight 131.75 lb Heart Rate 80 /min BP Systolic Sitting 104 mmHg LA< reg BP Diastolic Sitting 64 mmHg LA< reg Body Temperature 98.6 F BMI (Body Mass Index) 23.0 kg/m2 Ejection Fraction 55%-60% 10/24/17 stress echo Ref 12/24/2017 3:45pm Height 63.5 inches 5'3.50" Weight 128.00 lb Heart Rate 68 /min BP Systolic 108 mmHg BP Diastolic 68 mmHg Respiratory Rate 14 /min Body Temperature 97.9 F Pain Level 4 BMI (Body Mass Index) 22.3 kg/m2 11/20/2017 3:18pm Height 63.5 inches 5'3.50" Weight 128.00 lb BP Systolic 110 mmHg BP Diastolic 68 mmHg Respiratory Rate 16 /min Pain Level 5 BMI (Body Mass Index) 22.3 kg/m2 10/12/2017 3:31pm Height 63.5 inches 5'3.50" Heart Rate 72 /min BP Systolic 98 mmHg BP Diastolic 60 mmHg Respiratory Rate 16 /min Body Temperature 98.9 F Pain Level 4 10/02/2017 11:17am Height 63.5 inches 5'3.50" Weight 128.00 lb Heart Rate 76 /min BP Systolic 115 mmHg BP Diastolic 70 mmHg Respiratory Rate 16 /min Body Temperature 98.2 F BMI (Body Mass Index) 22.3 kg/m2 09/05/2017 1:50pm Height 63.5 inches 5'3.50" Weight 127.25 lb Heart Rate 60 /min BP Systolic Sitting 110 mmHg BP Diastolic Sitting 70 mmHg BMI (Body Mass Index) 22.2 kg/m2 Ejection Fraction 55%-60% 11/21/16 echo 08/17/2017 2:34pm Height 63.5 inches 5'3.50" Weight 128.00 lb Heart Rate 77 /min Respiratory Rate 15 /min Pain Level 2 BMI (Body Mass Index) 22.3 kg/m2 06/19/2017 1:59pm Height 63.5 inches 5'3.50" Weight 140.00 lb BP Systolic 128 mmHg BP Diastolic 68 mmHg Respiratory Rate 15 /min Body Temperature 98.7 F Pain Level 5 BMI (Body Mass Index) 24.4 kg/m2 12/15/2016 11:15am Height 63.5 inches 5'3.50" Weight 137.00 lb Heart Rate 80 /min BP Systolic 116 mmHg BP Diastolic 78 mmHg Respiratory Rate 16 /min Body Temperature 97.6 F BMI (Body Mass Index) 23.9 kg/m2 11/09/2016 11:04am Height 64 inches 5'4" Weight 135.50 lb no shoes Heart Rate 62 /min BP Systolic Sitting 120 mmHg Rue reg cuff BP Diastolic Sitting 86 mmHg Rue reg cuff BP Systolic Standing 116 mmHg Rue reg cuff BP Diastolic Standing 88 mmHg Rue reg cuff Respiratory Rate 15 /min BMI (Body Mass Index) 23.3 kg/m2 Ejection Fraction 55-60% 07/07/2015-echo 06/16/2016 3:08pm Height 64 inches 5'4" Weight 132.00 lb Heart Rate 76 /min BP Systolic 124 mmHg BP Diastolic 80 mmHg BMI (Body Mass Index) 22.7 kg/m2 11/22/2015 1:31pm Height 64 inches 5'4" Weight 135.25 lb with shoes and orthopedic boot Heart Rate 64 /min BP Systolic 138 mmHg LA reg cuff BP Diastolic 88 mmHg LA reg cuff BMI (Body Mass Index) 23.2 kg/m2 Ejection Fraction 55%-60% 07/07/15 echo 06/21/2015 3:48pm Height 64 inches 5'4" Weight 130.00 lb without shoes Heart Rate 72 /min BP Systolic Sitting 130 mmHg La reg cuff BP Diastolic Sitting 84 mmHg La reg cuff BMI (Body Mass Index) 22.3 kg/m2 10/09/2014 11:47am Height 64 inches 5'4" Weight 126.00 lb Pain Level 0 BMI (Body Mass Index) 21.6 kg/m2 09/22/2014 3:24pm Height 64 inches 5'4" Weight 126.00 lb Heart Rate 78 /min BP Systolic 128 mmHg BP Diastolic 100 mmHg BMI (Body Mass Index) 21.6 kg/m2 08/20/2014 1:29pm Height 64 inches 5'4" Weight 126.00 lb Heart Rate 59 /min BMI (Body Mass Index) 21.6 kg/m2 07/16/2014 2:00pm Height 64 inches 5'4" Weight 126.00 lb BMI (Body Mass Index) 21.6 kg/m2 06/16/2014 2:10pm Height 64 inches 5'4" Weight 126.00 lb Pain Level 1 BMI (Body Mass Index) 21.6 kg/m2 05/26/2014 10:29am Height 64 inches 5'4" Weight 128.00 lb with shoes Heart Rate 58 /min BP Systolic Sitting 122 mmHg La reg cuff BP Diastolic Sitting 78 mmHg La reg cuff Respiratory Rate 16 /min BMI (Body Mass Index) 22.0 kg/m2 05/19/2014 2:21pm Height 64 inches 5'4" Weight 126.00 lb Pain Level 4 BMI (Body Mass Index) 21.6 kg/m2 04/28/2014 3:44pm BP Systolic 132 mmHg BP Diastolic 83 mmHg 04/28/2014 3:22pm Height 64 inches 5'4" Weight 128.00 lb Heart Rate 65 /min BP Systolic 149 mmHg BP Diastolic 79 mmHg BMI (Body Mass Index) 22.0 kg/m2 10/24/2013 3:52pm Height 64 inches 5'4" Weight 129.00 lb Heart Rate 64 /min BP Systolic Sitting 124 mmHg BP Diastolic Sitting 76 mmHg BMI (Body Mass Index) 22.1 kg/m2 05/12/2013 3:30pm Height 64 inches 5'4" Weight 138.00 lb Heart Rate 78 /min BP Systolic Sitting 120 mmHg BP Diastolic Sitting 84 mmHg BMI (Body Mass Index) 23.7 kg/m2 02/21/2013 1:01pm Height 64 inches 5'4" Weight 145.00 lb Heart Rate 56 /min BP Systolic 128 mmHg BP Diastolic 78 mmHg BMI (Body Mass Index) 24.9 kg/m2 01/15/2013 3:24pm Height 64 inches 5'4" Weight 143.00 lb Heart Rate 58 /min BP Systolic 130 mmHg BP Diastolic 80 mmHg Respiratory Rate 16 /min BMI (Body Mass Index) 24.5 kg/m2 08/30/2012 2:09pm Height 64 inches 5'4" Weight 143.00 lb Heart Rate 60 /min BP Systolic 112 mmHg BP Diastolic 70 mmHg BMI (Body Mass Index) 24.5 kg/m2 04/11/2012 3:33pm Height 64 inches 5'4" Weight 142.00 lb Heart Rate 67 /min BP Systolic 120 mmHg BP Diastolic 80 mmHg Respiratory Rate 16 /min BMI (Body Mass Index) 24.4 kg/m2 11/09/2011 2:49pm Height 64 inches 5'4" Weight 151.00 lb Heart Rate 72 /min BP Systolic 128 mmHg BP Diastolic 68 mmHg BMI (Body Mass Index) 25.9 kg/m2 05/11/2011 10:53am Height 64 inches 5'4" Weight 146.00 lb Heart Rate 86 /min BP Systolic 110 mmHg BP Diastolic 60 mmHg Respiratory Rate 16 /min BMI (Body Mass Index) 25.1 kg/m2 12/01/2010 2:01pm Height 64 inches 5'4" Weight 146.00 lb Heart Rate 80 /min BP Systolic 100 mmHg BP Diastolic 70 mmHg Respiratory Rate 16 /min BMI (Body Mass Index) 25.1 kg/m2 12/01/2009 1:29pm Height 64 inches 5'4" Weight 148.00 lb Heart Rate 74 /min BP Systolic Sitting 100 mmHg BP Diastolic Sitting 68 mmHg BMI (Body Mass Index) 25.4 kg/m2 11/12/2008 2:52pm Height 64 inches 5'4" Weight 149.00 lb weighs 145 at home without clothes Heart Rate 74 /min BP Systolic Sitting 124 mmHg BP Diastolic Sitting 82 mmHg BMI (Body Mass Index) 25.6 kg/m2 08/31/2008 1:30pm Height 64 inches 5'4" Weight 152.00 lb Heart Rate 73 /min BP Systolic Sitting 110 mmHg BP Diastolic Sitting 72 mmHg BP Systolic Standing 108 mmHg BP Diastolic Standing 80 mmHg BMI (Body Mass Index) 26.1 kg/m2 08/29/2007 3:16pm Height 64 inches 5'4" Weight 161.00 lb Heart Rate 74 /min BP Systolic Sitting 102 mmHg BP Diastolic Sitting 70 mmHg Respiratory Rate 16 /min BMI (Body Mass Index) 27.6 kg/m2 08/30/2006 2:18pm Height 64 inches 5'4" Weight 155.00 lb Heart Rate 73 /min BP Systolic Sitting 120 mmHg R BP Diastolic Sitting 60 mmHg R BP Systolic Standing 110 mmHg R BP Diastolic Standing 70 mmHg R BMI (Body Mass Index) 26.6 kg/m2 2004 1:37pm Height 64 inches 5'4" Weight 159.00 lb Heart Rate 91 /min BP Systolic Sitting 120 mmHg left arm, right arm 120 BP Diastolic Sitting 74 mmHg left arm, right arm 120 BP Systolic Standing 110 mmHg 76 BP Diastolic Standing 70 mmHg 76 BMI (Body Mass Index) 27.3 kg/m2 Results Test Date Facility Test Result H/L Range Note Laboratory test 06/26/2018 [facility] Blood Urea 18 mg/dL N 6- [address] [place] [address] [phone] Creatinine 06/26/2018 [facility] Creatinine 0.65 mg/dL N 0.51- 0.[address] [place] [address] [phone] Egfr Non- 91.5 >60 Egfr 110.7 >60 1 Xray 06/20/2018 [facility] Cta Chest r/o Pulmonary [address] [place] [address] [phone] Laboratory test 05/03/2018 [facility] Ferritin 29.8 ng/mL N 11 -[address] [place] [address] [phone] Comp Metabolic 05/03/2018 [facility] Sodium 139 mmol/L N 135- [address] [place] [address] [phone] Potassium 4.5 mmol/L N 3.5-5.0 Chloride 106 mmol/L N 101-111 Co2 Carbon Dioxide 30 mmol/L N 22-32 Anion Gap 3 mmol/L N 2-11 Glucose 84 mg/dL N 70-100 Blood Urea Nitrogen 20 mg/dL N 6-24 Creatinine 0.65 mg/dL N 0.51-0.95 BUN/Creatinine Ratio 30.8 High 8-20 Calcium 9.2 mg/dL N 8.6-10.3 Total Protein 6.3 g/dL Low 6.4-8.9 Albumin 3.9 g/dL N 3.2-5.2 Globulin 2.4 g/dL N 2-4 Albumin/Globulin Ratio 1.6 N 1-3 Total Bilirubin 0.40 mg/dL N 0.2-1.0 Alkaline Phosphatase 53 U/L N 34-104 Alt 9 U/L N 7-52 Ast 15 U/L N 13-39 Egfr Non- 91.5 >60 Egfr 110.7 >60 2 CBC Auto Diff 05/03/2018 [facility] White Blood 5.4 10^3/uL N 3.5-10.[address] [place] [address] [phone] Red Blood Count 4.57 10^6/uL N 4.00-5.40 Hemoglobin 13.9 g/dL N 12.0-16.0 Hematocrit 41 % N 35-47 Mean Corpuscular Volume 90 fL N 80-97 Mean Corpuscular Hemoglobin 31 pg N 27-31 Mean Corpuscular HGB Conc 34 g/dL N 31-36 Red Cell Distribution Width 14 % N 10.5-15 Platelet Count 319 10^3/uL N 150-450 Mean Platelet Volume 7.4 fL N 7.4-10.4 Abs Neutrophils 3.4 10^3/uL N 1.5-7.7 Abs Lymphocytes 1.4 10^3/uL N 1.0-4.8 Abs Monocytes 0.3 10^3/uL N 0-0.8 Abs Eosinophils 0.2 10^3/uL N 0-0.6 Abs Basophils 0.1 10^3/uL N 0-0.2 Abs Nucleated RBC 0 10^3/uL Granulocyte % 61.9 % N 38-83 Lymphocyte % 25.8 % N 25-47 Monocyte % 6.2 % N 0-7 Eosinophil % 4.5 % N 0-6 Basophil % 1.6 % N 0-2 Nucleated Red Blood Cells % 0.1 Laboratory test 05/03/2018 [facility] B-Type 48 pg/mL <=[address] [place] [address] Peptide BNP [phone] TSH (Thyroid Stim Horm) 3.39 mcIU/mL N 0.34-5.60 Vitamin B12 And 05/03/2018 [facility] Vitamin B12 738 pg/mL N 180-914 3 Folate Serum [address] [place] [address] [phone] Folic Acid (Folate) 15.33 ng/mL >3.99 Laboratory test 05/03/2018 [facility] Vitamin B1 147 nmol/L 70-180 [address] (Whole Blood) [place], [place] [id number] [phone] Iron & Iron 05/03/2018 [facility] Iron 58 g/dL N 50-212 Binding Capacity [address] [place] [address] [phone] Unsaturated Iron Binding < 317 g/dL Total Iron Binding Capacity 332 g/dL N 250-450 Transferrin 237 mg/dL N 203-362 % Iron Saturation 17 % N 15-55 CBC Auto Diff 09/24/2017 [facility] White Blood 4.7 10^3/uL N 3.5-10.[address] [place] [address] [phone] Red Blood Count 4.49 10^6/uL N 4.0-5.4 [...] Cells % 0 Comp Metabolic Panel 09/24/2017 [facility] Sodium 141 mmol/L N 139-145 [address] [place] [address] [phone] Potassium 4.2 mmol/L N 3.5-5.0 Chloride 105 [...] Egfr Non- 82.6 >60 Egfr 106.3 >60 5 Lipid Profile 09/24/2017 [facility] Triglycerides 72 mg/dL 6 (Trig/Chol/HDL) [address] [place] [address] [phone] Cholesterol 220 mg/dL 7 HDL Cholesterol 56.0 mg/dL 8 LDL Cholesterol 150 mg/dL 9 Laboratory test 09/24/2017 [facility] Magnesium 2.2 mg/dL N 1.9-2.7 finding [address] [place] [address] [phone] Creatine Kinase 32 U/L N 10-223 B-Type Natriuretic Peptide BNP 30 pg/mL 10 LDH 121 U/L Low 140-271 Laboratory test 09/24/2017 [facility] Ferritin 51.7 ng/mL N 11 -[address] [place] [address] [phone] Iron & Iron Binding 09/24/2017 [facility] Iron 59 g/dL N 50- [address] [place], [place] [id number] [phone] Unsaturated Iron Binding 253 g/dL Total Iron Binding Capacity 312 g/dL N 250-450 Transferrin 223 mg/dL N 203-362 % Iron Saturation 19 % N 15-55 Laboratory test finding 09/05/2017 [facility] Magnesium <pending > [address] [place] [address] [phone] B-Type Natriuretic Peptide BNP <pending> Lipid Panel - 09/05/2017 [facility] Creatine <pending> J[facility] [address] Kinase(CK) [place] [address] [phone] Iron & Iron 07/11/2017 [facility] Iron 46 g/dL Low 50-[address] [place], [place] [id number] [phone] Unsaturated Iron Binding 296 g/dL Total Iron Binding Capacity 342 g/dL N 250-450 % Iron Saturation 13 % Low 15-55 Laboratory test 07/11/2017 [facility] C Reactive 3.71 mg/L N < 5.[address] [place] [address] [phone] Ferritin 24.3 ng/mL N 11-307 Erythrocyte Sed Rate 21 mm/Hr N 0-30 Erythropoietin 7.9 mIU/mL 2.6 - 18.5 12 Laboratory test 07/11/2017 [facility] LDH 122 U/L Low 140-[address] [place], [place] [id number] [phone] CBC Auto Diff 07/11/2017 [facility] White Blood 6.6 N 3.5- 10.[address] Count 10^3/[place] [address] [phone] Red Blood Count 4.59 10^6/uL N 4.0-5.4 [...] Red Blood Cells % 0.1 Laboratory test 11/09/2016 [facility] TSH (Thyroid 1.60 mcIU/mL N 0.34-5.[address] Stim [place]orm) [place] [address] [phone] B-Type Natriuretic Peptide BNP 31 pg/mL N 14 Basic Metabolic Panel 11/09/2016 [facility] Sodium 136 mmol/L N 133-145 [address] [place] [address] [phone] Potassium 4.1 mmol/L N 3.5-5.0 Chloride 103 mmol/L N 101-111 Co2 Carbon Dioxide 26 mmol/L N 22-32 Anion Gap 7 mmol/L N 2-11 Glucose 91 mg/dL N 70-100 Blood Urea Nitrogen 19 mg/dL N 6-24 Creatinine 0.63 mg/dL N 0.51-0.95 BUN/Creatinine Ratio 30.2 High 8-20 Egfr Non- 95.1 N >60 Egfr 122.4 N >60 15 Calcium 9.5 mg/dL N 8.6-10.3 Basic Metabolic Panel 10/24/2016 [facility] Sodium 136 mmol/L N 133-145 [address] [place] [address] [phone] Potassium 4.3 mmol/L N 3.5-5.0 Chloride 104 mmol/L N 101-111 Co2 Carbon Dioxide 26 mmol/L N 22-32 Anion Gap 6 mmol/L N 2-11 Glucose 91 mg/dL N 70-100 Blood Urea Nitrogen 16 mg/dL N 6-24 Creatinine 0.62 mg/dL N 0.51-0.95 BUN/Creatinine Ratio 25.8 High 8-20 Calcium 9.3 mg/dL N 8.6-10.3 Egfr Non- 96.9 N >60 Egfr 124.6 N >60 16 Laboratory test finding 10/24/2016 [facility] Estradiol <40 pg/ mL N [address] [place] [address] [phone] Vitamin D Total 25(Oh) 15.2 ng/mL Low 30-50 Estradiol, Confirmatory, S <10 pg/mL N 18 Laboratory test 06/22/2015 [facility] Erythrocyte Sed 17 mm/Hr N 0-[address] [place] [address] [phone] CRP High Sensitivity 1.52 mg/L N 19 Digoxin < 0.2 ng/ml Low 0.8-2.0 Rheumatoid Factor <15 IU/mL N <15 20 Anti Dna (Double Stranded Dna) Negative N Negative Basic Metabolic Panel 06/22/2015 [facility] Sodium 137 mmol/L N 133-[address] [place] [address] [phone] Potassium 4.2 mmol/L N 3.5-5.0 Chloride 101 mmol/L N 101-111 Co2 Carbon Dioxide 29 mmol/L N 22-32 Anion Gap 7 mmol/L N 2-11 Glucose 94 mg/dL N 70-100 Blood Urea Nitrogen 15 mg/dL N 6-24 Creatinine 0.63 mg/dL N 0.51-0.95 BUN/Creatinine Ratio 23.8 High 8-20 Calcium 9.7 mg/dL N 8.6-10.3 Egfr Non- 95.8 N >60 Egfr 123.1 N >60 21 CBC Auto Diff 06/22/2015 [facility] White Blood 6.7 10^3/uL N 3.5-10.[address] [place] [address] [phone] Red Blood Count 4.84 10^6/uL N 4.0-5.4 Hemoglobin 14.3 g/dL N 12.0-16.0 Hematocrit 44 % N 35-47 Mean Corpuscular Volume 91 fL N 80-97 Mean Corpuscular Hemoglobin 30 pg N 27-31 Mean Corpuscular HGB Conc 33 g/dL N 31-36 Red Cell Distribution Width 14 % N 10.5-15 Platelet Count 302 10^3/uL N 150-450 Mean Platelet Volume 7 um3 Low 7.4-10.4 Abs Neutrophils 5.1 10^3/uL N 1.5-7.7 Abs Lymphocytes 1.1 10^3/uL N 1.0-4.8 Abs Monocytes 0.3 10^3/uL N 0-0.8 Abs Eosinophils 0.2 10^3/uL N 0-0.6 Abs Basophils 0.1 10^3/uL N 0-0.2 Abs Nucleated RBC 0 10^3/uL N Granulocyte % 75.2 % N 38-83 Lymphocyte % 16.6 % Low 25-47 Monocyte % 4.1 % N 1-9 Eosinophil % 2.8 % N 0-6 Basophil % 1.3 % N 0-2 Nucleated Red Blood Cells % 0 N Laboratory test 06/22/2015 [facility] B-Type Natriuretic 25 pg/ mL N [address] [place] [address] [phone] Urinalysis Profile 09/21/2014 [facility] Urine Color Yellow N [address] [place] [address] [phone] Urine Appearance Clear N Urine Specific [place] 1.019 N 1.010-1.030 Urine pH 5.0 N 5-9 Urine Urobilinogen Negative N Negative Urine Ketones Negative N Negative Urine Protein Negative N Negative Urine Leukocytes Negative N Negative Urine Blood Negative N Negative Urine Nitrite Negative N Negative Urine Bilirubin Negative N Negative Urine Glucose Negative N Negative CBC No Diff 09/21/2014 [facility] White Blood 5.9 10^3/uL N 4.8-10.[address] [place] [address] [phone] Red Blood Count 4.58 10^6/uL N 4.0-5.4 Hemoglobin 13.5 g/dL N 12.0-16.0 Hematocrit 41 % N 35-47 Mean Corpuscular Volume 89 fL N 80-97 Mean Corpuscular Hemoglobin 30 pg N 27-31 Mean Corpuscular HGB Conc 33 g/dL N 31-36 Red Cell Distribution Width 15 % N 10.5-15 Platelet Count 341 10^3/uL N 150-450 Mean Platelet Volume 7 um3 Low 7.4-10.4 Inr/Protime 09/21/2014 [facility] Inr 0.93 N 0.78-1.07 [address] [place] [address] [phone] Basic Metabolic 09/21/2014 [facility] Sodium 135 mmol/L N 133- 145 Panel [address] [place] [address] [phone] Potassium 3.9 mmol/L N 3.5-5.0 Chloride 102 mmol/L N 101-111 Co2 Carbon Dioxide 30 mmol/L N 22-32 Anion Gap 3 mmol/L N 2-11 Glucose 81 mg/dL N 70-100 Blood Urea Nitrogen 17 mg/dL N 6-24 Creatinine 0.65 mg/dL N 0.51-0.95 BUN/Creatinine Ratio 26.2 High 8-20 Calcium 9.1 mg/dL N 8.6-10.3 Egfr Non- 92.4 N >60 Egfr 118.8 N >60 24 Type & Screen 09/21/2014 [facility] Patient Blood Type A Positive N [address] [place] [id number] [phone] Antibody Screen NEGATIVE N Surgical 07/06/2014 [facility] S RUN DATE: 25 Pathology 101 [facility] 07/08/ <[place] [address] NOTE> [phone] CBC Auto Diff 05/26/2014 White Blood 6.8 10^3/uL N 4.8-10. Count 8 Red Blood Count 4.63 10^6/uL N 4.0-5.4 Hemoglobin 13.3 g/dL N 12.0-16.0 Hematocrit 40 % N 35-47 Mean Corpuscular Volume 87 fL N 80-97 Mean Corpuscular Hemoglobin 29 pg N 27-31 Mean Corpuscular HGB Conc 33 g/dL N 31-36 Red Cell Distribution Width 15 % N 10.5-15 Platelet Count 369 10^3/uL N 150-450 Mean Platelet Volume 8 um3 N 7.4-10.4 Abs Neutrophils 4.7 10^3/uL N 1.5-7.7 Abs Lymphocytes 1.5 10^3/uL N 1.0-4.8 Abs Monocytes 0.3 10^3/uL N 0-0.8 Abs Eosinophils 0.2 10^3/uL N 0-0.6 Abs Basophils 0.1 10^3/uL N 0-0.2 Abs Nucleated RBC 0 10^3/uL N Granulocyte % 69.1 % N 38-83 Lymphocyte % 21.2 % Low 25-47 Monocyte % 4.9 % N 1-9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
== END 2019-01-06 18:09 | disposition left against medical advice (07) ==
LOC: UCEAST 17:52
DX: Z53.8 Procedure and treatment not carried out for other reasons (principal)